=== PATIENT | female | born 1955 | race Caucasian/White ===

== ENCOUNTER 2020-06-13 12:50 | Outpatient (CLI) | payer BC, SELFPAY ==
--- NOTE | ~2020-06-13 | DEXA_ITS ---
Bone Density Report Name: Pham Byers Age: 65 Sex: Female Ethnicity: White Date of : 1955 Indication: postmenopausal; height loss; Referring Provider: ShonaSam Study: Bone densitometry was performed. Exam Date: June 13, 2020 Accession number: [id number] Bone Density: Region BMD T-score Z-score Classification AP Spine (L1-L4) 1.144 0.9 2.7 Normal Femoral Neck (Left) 0.782 -0.6 0.9 Normal Total Hip (Left) 0.955 0.1 1.3 Normal Total Hip Bilateral Avg 0.940 0.0 1.2 Normal Femoral Neck (Right) 0.790 -0.5 1.0 Normal Total Hip (Right) 0.925 -0.1 1.1 Normal World Health Organization criteria for BMD impression classify patients as: Normal (T-score at or above -1.0), Osteopenia (T-score between -1.0 and -2.5), or Osteoporosis (T-score at or below -2.5). 10-year Fracture Risk: FRAX not reported because: All T-scores for Spine Total, Hip Total, Femoral Neck at or above -1.0 Clinical Information Provided by Patient: Has used the following medications: Vitamin D Patient maximum height was 63 Menopause Age: 53 No regular weight bearing exercise Onset of menses at age 13 Number of children 0 Impression: The patient has normal bone mass. Discussion: BONE DENSITY IS ABOVE THE MINIMUM DESIRABLE LEVEL AT ALL SKELETAL SITES TESTED. This patient?s bone mineral density is above the minimum desirable level (T-score -1.0 or better) at all sites measured. The patient should follow a healthful lifestyle (good nutrition with adequate calcium and vitamin D, and appropriate weight-bearing exercise). Follow-Up: Consider repeating this study in 5 years or sooner if there is some new clinical indication. Reported by: VIVIAN on 06/13/2020 1:17:00 PM. Reviewed, dictated and finalized at location AMelissa COHN
--- NOTE | ~2020-06-13 | MM_ITS ---
EXAMINATION: MM screening gautam BI w nuha HISTORY: Screening mammogram TECHNIQUE: Craniocaudal and mediolateral oblique 3-D tomosynthesis images were obtained and synthetic 2-D images were generated. CAD analysis was submitted and interpreted. COMPARISON: 06/07/2019, 06/03/2018, 05/23/2017 bilateral digital screening mammogram examinations BREAST PARENCHYMAL COMPOSITION: The breasts are heterogeneously dense, which may obscure small masses . FINDINGS: 5 mm mass is suggested posteriorly in the lower medial-central right breast on MLO view (cr aniocaudal Tomosynthesis image 15/; MLO Tomosynthesis image /); diagnostic right mammogram and right breast ultrasound examination are recommended. Otherwise there is no evidence of suspicious mass, calcification, or architectural distortion to sugg est malignancy in either breast. There has been no other suspicious interval change. IMPRESSION: 1. 5 mm mass is noted in the lower inner right breast near midline 2. Diagnostic right mammogram and right breast ultrasound examination are recommended BI-RADS Category 0: Incomplete: Needs additional imaging evaluation. Reviewed, dictated and finalized at location A. IMPRESSION: 1. 5 mm mass is noted in the lower inner right breast near midline 2. Diagnostic right mammogram and right breast ultrasound examination are recom mended BI-RADS Category 0: Incomplete: Needs additional imaging evaluation.
== END 2020-06-13 12:51 | disposition home or self-care (01) ==
LOC: ANHIMG 12:53
PROVIDERS: PCP Family Medicine; Visit Provider Family Medicine
DX: Z12.31 Encounter for screening mammogram for malignant neoplasm of breast (principal); Z78.0 Asymptomatic menopausal state; R92.8 Other abnormal and inconclusive findings on diagnostic imaging of breast
CPT/HCPCS: 77063; 77067; 77080

== ENCOUNTER 2020-07-13 13:04 | Outpatient (CLI) | payer BC, SELFPAY ==
--- NOTE | ~2020-07-13 | MMUS_ITS ---
EXAMINATION: MM diagnostic mammo unilat RT, US breast RT limited HISTORY: Right breast mass on screening mammogram TECHNIQUE: Additional 3-D tomosynthesis images of the right breast were performed and synthetic 2-D i mages were generated. CAD analysis was submitted and interpreted. High resolution limited right breas t ultrasound was performed. COMPARISON: 06/13/2020, 06/07/2019, 06/03/2018, 05/23/2017 FINDINGS: MAMMOGRAPHIC FINDINGS: There is a 6 mm oval, obscured, equal density mass in the posterior third of the lower breast at the 6:00 location 10 cm from the nipple. No suspicious calcification or architectural distortion are iden tified. ULTRASOUND: There is a 5 mm x 3 mm oval, circumscribed, parallel, hypoechoic mass with posterior acoustic enhance ment and no posterior features at the 6:00 location 5 cm from the nipple corresponding to the mammogr aphic finding in question. IMPRESSION: 1. Probably benign right breast. 2. Recommend 6 month follow-up right mammogram and ultrasound. BI-RADS category 3, probably benign findings. Reviewed, dictated and finalized at location A. ILLERY MILLER IMPRESSION: 1. Probably benign right breast. 2. Recommend 6 month follow-up right mammogram and ultrasound. BI-RADS category 3, probably benign findings.
== END 2020-07-13 13:05 | disposition home or self-care (01) ==
PROVIDERS: PCP Family Medicine; Visit Provider Family Medicine
DX: N63.15 Unspecified lump in the right breast, overlapping quadrants (principal)
CPT/HCPCS: 76642; 77065; 77066

== ENCOUNTER 2021-08-02 08:08 | Outpatient (CLI) | payer BC, SELFPAY ==
--- NOTE | ~2021-08-02 | MMUS_ITS ---
EXAMINATION: MM diagnostic gautam BI w nuha, US breast RT limited HISTORY: Follow-up breast masses TECHNIQUE: Additional 3-D tomosynthesis images of the breasts were performed and synthetic 2-D images were generated. CAD analysis was submitted and interpreted. High resolution Limited right breast ult rasound was performed. COMPARISON: Comparison to multiple prior studies sequentially, with oldest reviewed study dated 02/01. BREAST PARENCHYMAL COMPOSITION: The breasts are heterogenously dense, which may obscure small masses. FINDINGS: MAMMOGRAPHIC FINDINGS: There are no new masses, calcifications or architectural distortion in either breast to suggest malig joseph. ULTRASOUND: Limited right breast ultrasound: At 6:00, 5 cm from the nipple, there is a 4 mm cyst. No suspicious m asses to suggest malignancy. IMPRESSION: 1. No evidence for malignancy in either breast. 2. Routine yearly screening mammogram and regular clinical breast examination are recommended. BI-RADS Category 2: Benign finding(s). Reviewed, dictated and finalized at location A. D COORDINATOR IMPRESSION: 1. No evidence for malignancy in either breast. 2. Routine yearly screening mammogram and regular clinical breast examination a re recommended. BI-RADS Category 2: Benign finding(s).
== END 2021-08-02 08:09 | disposition home or self-care (01) ==
PROVIDERS: PCP Family Medicine; Visit Provider Family Medicine
DX: R92.8 Other abnormal and inconclusive findings on diagnostic imaging of breast (principal)
CPT/HCPCS: 76642; 77062; 77066; G0279

== ENCOUNTER 2022-09-18 07:46 | Outpatient (CLI) | payer MEDICARE, SELFPAY ==
--- NOTE | ~2022-09-18 | MM_ITS ---
EXAMINATION: MM screening gautam BI w nuha HISTORY: Screening mammogram, family history of breast cancer in her sister. TECHNIQUE: Craniocaudal and mediolateral oblique 3-D tomosynthesis images were obtained and synthetic 2-D images were generated. CAD analysis was submitted and interpreted. COMPARISON: 08/02/2021, 07/13/2020, 06/13/2020, 06/07/2019 BREAST PARENCHYMAL COMPOSITION: The breasts are heterogeneously dense, which may obscure small masses . FINDINGS: No suspicious mass, calcification, or architectural distortion are identified in either montserrat ast to suggest malignancy. There has been no suspicious interval change. IMPRESSION: 1. No mammographic evidence of malignancy. 2. Recommend routine screening mammography in one year. BI-RADS Category 1: Negative Reviewed, dictated and finalized at location A. FICATION DIRECTOR
== END 2022-09-18 07:47 | disposition home or self-care (01) ==
PROVIDERS: PCP Family Medicine; Visit Provider Family Medicine
DX: Z12.31 Encounter for screening mammogram for malignant neoplasm of breast (principal)
CPT/HCPCS: 77063; 77067

== ENCOUNTER 2023-09-28 09:11 | Outpatient (CLI) | payer MEDICARE, SELFPAY ==
--- NOTE | ~2023-09-28 | MM_ITS ---
EXAMINATION: MM screening gautam BI w nuha HISTORY: Screening mammogram, family history of breast cancer in her sister. TECHNIQUE: Craniocaudal and mediolateral oblique 3-D tomosynthesis images were obtained and synthetic 2-D images were generated. CAD analysis was submitted and interpreted. COMPARISON: 09/18/2022, 08/02/2021, 07/13/2020, 06/13/2020 BREAST PARENCHYMAL COMPOSITION: The breasts are heterogeneously dense, which may obscure small masses . FINDINGS: RIGHT BREAST: There is a possible mass in the posterior third of the outer breast approximately 9 cm from the nipple. LEFT BREAST: No suspicious mass, calcification, or architectural distortion are identified to suggest malignancy. There has been no suspicious interval change. IMPRESSION: 1. Possible right breast mass. 2. Additional mammographic views and possible breast ultrasound are recommended. BI-RADS Category 0: Incomplete: Needs additional imaging evaluation. Reviewed, dictated and finalized at location A. ERLIGHT DEVELOPER IMPRESSION: 1. Possible right breast mass. 2. Additional mammographic views and possible breast ultrasound are recommended . BI-RADS Category 0: Incomplete: Needs additional imaging evaluation.
== END 2023-09-28 09:12 | disposition home or self-care (01) ==
LOC: ANHIMG 09:15
PROVIDERS: PCP Family Medicine; Visit Provider Family Medicine
DX: Z12.31 Encounter for screening mammogram for malignant neoplasm of breast (principal); R92.8 Other abnormal and inconclusive findings on diagnostic imaging of breast
CPT/HCPCS: 77063; 77067

== ENCOUNTER 2023-11-12 10:54 | Outpatient (CLI) | payer MEDICARE, SELFPAY ==
--- NOTE | ~2023-11-12 | MMUS_ITS ---
EXAMINATION: MM diagnostic gautam RT w nuha and right breast ultrasound HISTORY: Questionable right breast mass TECHNIQUE: Craniocaudal and mediolateral oblique 3-D tomosynthesis images were obtained and synthetic 2-D images were generated. CAD analysis was submitted and interpreted. COMPARISON: Prior mammography dated 09/28/2023 and 09/18/2022 BREAST PARENCHYMAL COMPOSITION:Dense: The breasts are heterogeneously dense, which may obscure small masses. FINDINGS: Spot compression views of the right breast demonstrate no definite mass lesion or security architect ural distortion. No suspicious lytic or calcification seen. Right breast ultrasound: Sonographic imaging of the right breast was performed. FINDINGS: At the 1:00 position right breast, 1 cm from the nipple, there is a somewhat lobulated and irregular cyst measuring up to 1.8 x 0.5 x 0.8 cm in size, wider than tall. No posterior shadowing. A t the 5:00 position, 5 cm from the nipple, there is a 4 mm simple cyst. At the 10:00 position, 4 cm f rom the nipple, there is a 0.7 m simple cyst. IMPRESSION: 1.8 x 0.5 x 0.8 cm mildly complex cyst at the 1:00 position right breast, 1 cm from the nipple. Six- month follow-up ultrasound recommended to ensure stability. No findings which overtly suspicious for malignancy. BI-RADS 3: Short term follow-up Reviewed, dictated and finalized at location . IMPRESSION: 1.8 x 0.5 x 0.8 cm mildly complex cyst at the 1:00 position right breast, 1 cm from the nipple. Six-month follow-up ultrasound recommended to ensure stabilit y. No findings which overtly suspicious for malignancy. BI-RADS 3: Short term follow-up
== END 2023-11-12 10:55 | disposition home or self-care (01) ==
PROVIDERS: PCP Family Medicine; Visit Provider Family Medicine
DX: R92.8 Other abnormal and inconclusive findings on diagnostic imaging of breast (principal)
CPT/HCPCS: 76641; 77061; 77065; G0279

== ENCOUNTER 2024-05-12 08:06 | Outpatient (CLI) | payer MEDICARE, SELFPAY ==
--- NOTE | ~2024-05-12 | US_ITS ---
EXAMINATION TYPE: US breast RT limited COMPARISON: 11/12/2023 REASON FOR STUDY: BREAST CYST TECHNIQUE: Targeted sonographic evaluation of the right breast was performed. INTERPRETATION: At the 1:00 position right breast, 1 cm from the nipple, there is a 1.7 x 0.4 x 0.7 cm complex cyst, similar to prior exam. There is an additional 4 mm simple appearing cyst at the 5:00 position right b reast, 5 cm from the nipple. There is an additional 6 mm benign cyst at the right breast 10:00 positi on, 4 cm from the nipple. IMPRESSION: Sonographic findings are unchanged from prior exam, as detailed above. Stability is indicative of fredis ignity. BI-RADS CATEGORY: BI-RADS 2: Benign Reviewed, dictated and finalized at location . IMPRESSION: Sonographic findings are unchanged from prior exam, as detailed above. Stabilit y is indicative of benignity. BI-RADS CATEGORY: BI-RADS 2: Benign
== END 2024-05-12 08:07 | disposition home or self-care (01) ==
PROVIDERS: PCP Family Medicine; Visit Provider Family Medicine
DX: N60.01 Solitary cyst of right breast (principal)
CPT/HCPCS: 76642